=== PATIENT | female | born 1995 | race Hispanic/Latino ===

== ENCOUNTER 2021-05-06 10:56 | Emergency (ER) | payer OTHER ==
[~2021-05-06] VITALS: Ht 157.5 cm; Wt 66.2 kg
[2021-05-06 10:59] VITALS: BP 131/68
[2021-05-06] MEDS ORDERED: ACETAMINOPHEN 500 MG TABLET PO SCH (12:30)
== END 2021-05-06 14:29 | disposition home or self-care (01) ==
LOC: EDH 10:56 → UNDOADMOB 10:57 → LDH 10:57 → EDH 14:29 → UNDODISOB 14:29
DX: O9A.212 Injury, poisoning and certain other consequences of external causes complicating pregnancy, second trimester (principal); S30.0XXA Contusion of lower back and pelvis, initial encounter; Z3A.21 21 weeks gestation of pregnancy; W18.39XA Other fall on same level, initial encounter; Y93.89 Activity, other specified; Y92.89 Other specified places as the place of occurrence of the external cause; Y99.8 Other external cause status
CPT/HCPCS: 99281; G0378

== ENCOUNTER 2021-07-25 20:36 | Observation (INO) | payer OTHER ==
[~2021-07-25] VITALS: Ht 157.5 cm; Wt 73.5 kg
[2021-07-25 20:37] VITALS: BP 138/68
[2021-07-25 21:29] LABS: APPEARANCE,URINE Clear (CLEAR); BILIRUBIN,URINE Negative (NEGATIVE); COLOR,URINE Yellow (YELLOW); GLUCOSE, URINE (UA) Negative (NEGATIVE); KETONES,URINE Negative (NEGATIVE); LEUKOCYTE ESTERASE ,URINE Trace (NEGATIVE); NITRATE,URINE Negative (NEGATIVE); OCCULT BLOOD,URINE Negative (NEGATIVE); PH,URINE 7.5 (5.0-8.0); PROTEIN,URINE Negative (NEGATIVE); UROBILINOGEN,URINE 0.2 mg/dL (0.2-1.0)
[2021-07-25 21:38] LABS: BACTERIA,URINE Rare /HPF (None Seen); RBC,URINE 0-1 /HPF (0-1); SQUAMOUS EPITHELIAL CELL,UR Rare /HPF (0-2); WBC,URINE 0-1 /HPF (0-1)
[2021-07-25 22:15] LABS: AMPHET/METH SCREEN,URINE NEGATIVE (NEGATIVE); BARBITURATE SCREEN, URINE NEGATIVE (NEGATIVE); BENZODIAZEPINES SCREEN,URINE NEGATIVE (NEGATIVE); CANNABINOID SCREEN,URINE NEGATIVE (NEGATIVE); COCAINE SCREEN,URINE NEGATIVE (NEGATIVE); OPIATE SCREEN,URINE NEGATIVE (NEGATIVE); PHENCYCLIDINE SCREEN,URINE NEGATIVE (NEGATIVE)
== END 2021-07-25 21:51 | disposition home or self-care (01) ==
LOC: EDH 20:36 → LDH 20:37
PROVIDERS: ADMIT Specialist; ATTEND Specialist
DX: O42.913 Preterm premature rupture of membranes, unspecified as to length of time between rupture and onset of labor, third trimester (principal); Z79.899 Other long term (current) drug therapy; Z3A.32 32 weeks gestation of pregnancy
CPT/HCPCS: 59025; 80305; 81001; 82120; G0378; G0379

== ENCOUNTER 2021-07-30 14:59 | Observation (INO) | payer OTHER ==
[~2021-07-30] VITALS: Ht 160 cm; Wt 74.8 kg
== END 2021-07-30 17:21 | disposition home or self-care (01) ==
LOC: LDH 14:59
PROVIDERS: ADMIT Specialist; ATTEND Specialist
DX: Z34.93 Encounter for supervision of normal pregnancy, unspecified, third trimester (principal); Z3A.33 33 weeks gestation of pregnancy
CPT/HCPCS: 59025; 76819; G0378

== ENCOUNTER 2022-10-25 18:29 | Emergency (ER) | payer OTHER ==
[~2022-10-25] VITALS: Ht 157.5 cm; Wt 70.3 kg
[~2022-10-25 18:29] MED LIST: PREN-202 PO
[2022-10-25 19:28] LABS: APPEARANCE,URINE CLEAR (CLEAR); BILIRUBIN,URINE NEGATIVE (NEGATIVE); COLOR,URINE COLORLESS (YELLOW); GLUCOSE, URINE (UA) NEGATIVE (NEGATIVE); KETONES,URINE NEGATIVE (NEGATIVE); LEUKOCYTE ESTERASE ,URINE NEGATIVE Leu/uL (NEGATIVE); NITRATE,URINE NEGATIVE (NEGATIVE); OCCULT BLOOD,URINE NEGATIVE (NEGATIVE); PROTEIN,URINE NEGATIVE (NEGATIVE); UROBILINOGEN,URINE 0.2 mg/dL (0.2-1.0)
[2022-10-25 19:30] LABS: BACTERIA,URINE RARE /HPF (None Seen); SQUAMOUS EPITHELIAL CELL,UR RARE /HPF (0-2); WBC,URINE 0-1 /HPF (0-1)
[2022-10-25 19:44] LABS: HCG,QUALITATIVE URINE POSITIVE (NEGATIVE)
[2022-10-25 20:13] LABS: BASOPHILS % (AUTO) 0.3 % (0.0-5.0); EOSINOPHILS % (AUTO) 1.2 % (0.0-8.0); HEMATOCRIT 40.3 % (36-48); LYMPHOCYTES % (AUTO) 20.7 % (21.0-51.0); MEAN CORPUSCULAR HEMOGLOBIN 28.9 pg (27.0-33.0); MEAN CORPUSCULAR HGB CONC 34.2 g/dL (32.0-36.0); MEAN CORPUSCULAR VOLUME 84.5 fL (79-99); MONOCYTES % (AUTO) 6.6 % (3.0-13.0); NEUTROPHILS % (AUTO) 70.8 % (40.0-77.0); PLATELET COUNT (AUTO) 214 K/uL (130-400); RED BLOOD CELL COUNT(AUTO) 4.77 MIL/uL (4.00-5.50); RED CELL DISTRIBUTION WIDTH 11.9 % (11.0-15.5); WHITE BLOOD COUNT (AUTO) 9.2 K/uL (4.8-10.8)
[2022-10-25 20:50] LABS: ALBUMIN 4.2 g/dL (3.5-5.0); CREATININE 0.7 mg/dL (0.5-1.5); POTASSIUM 3.7 mmol/L (3.5-5.1); TOTAL PROTEIN, SERUM 7.9 g/dL (6.0-8.3)
[2022-10-25] MEDS ORDERED: ONDA4TAB10 PO (21:27)
[2022-10-25] MEDS ORDERED: PREN1COM14 PO (21:27)
[2022-10-25 21:42] VITALS: BP 129/85
== END 2022-10-25 21:52 | disposition home or self-care (01) ==
LOC: EDH 18:29
DX: O20.0 Threatened abortion (principal); Z3A.01 Less than 8 weeks gestation of pregnancy; Z86.16 Personal history of COVID-19
CPT/HCPCS: 36415; 76801; 80053; 81001; 81025; 84702; 85025; 86900; 86901

== ENCOUNTER 2023-06-12 02:57 | Inpatient (IN) | payer OTHER, BC ==
[~2023-06-12] VITALS: Ht 157.5 cm; Wt 75.7 kg
[~2023-06-12 02:57] MED LIST changes: +ONDA4TAB10 PO; +PREN1COM14 PO
[2023-06-12] MEDS ORDERED: LACTATED RINGERS 1000ML IV ONE (03:30)
[2023-06-12 03:31] LABS: APPEARANCE,URINE CLEAR (CLEAR); BILIRUBIN,URINE NEGATIVE (NEGATIVE); COLOR,URINE LIGHT-YELLOW (YELLOW); GLUCOSE, URINE (UA) NEGATIVE (NEGATIVE); KETONES,URINE 10 mg/dL (NEGATIVE); LEUKOCYTE ESTERASE ,URINE 75 Leu/uL (NEGATIVE); NITRATE,URINE NEGATIVE (NEGATIVE); OCCULT BLOOD,URINE SMALL (NEGATIVE); PH,URINE 6.5 (5.0-8.0); PROTEIN,URINE NEGATIVE (NEGATIVE); UROBILINOGEN,URINE 0.2 mg/dL (0.2-1.0)
[2023-06-12 03:32] LABS: ADD UA MICROSCOPIC YES
[2023-06-12 03:38] LABS: MUCUS,URINE RARE LPF (None Seen); RBC,URINE 26-50 /HPF (0-1); SQUAMOUS EPITHELIAL CELL,UR MOD /HPF (0-2)
[2023-06-12] MEDS ORDERED: TERBUTALINE SULFATE VIAL 1MG/ML SQ SCH (04:30)
[2023-06-12] MEDS ORDERED: LACTATED RINGERS 1000ML IV PRN (05:00)
[2023-06-12] MEDS ORDERED: CEFAZOLIN SODIUM 2 GM VIAL IVPB PRN (07:30)
[2023-06-12 08:02] LABS: HEMATOCRIT 33.9 % (36-48); MEAN CORPUSCULAR HEMOGLOBIN 30.4 pg (27.0-33.0); MEAN CORPUSCULAR HGB CONC 33.3 g/dL (32.0-36.0); MEAN CORPUSCULAR VOLUME 91.1 fL (79-99); RED BLOOD CELL COUNT(AUTO) 3.72 MIL/uL (4.00-5.50); RED CELL DISTRIBUTION WIDTH 13.1 % (11.0-15.5); WHITE BLOOD COUNT (AUTO) 8.8 K/uL (4.8-10.8)
[2023-06-12 08:53] LABS: HIV 1&2 ANTIBODY Non-Reactive (Negative); HIV-1 p24 Antigen Non-Reactive (Negative)
[2023-06-12] MEDS ORDERED: MORPHINE PF 100MG/10ML AMP IV ONE (09:33)
[2023-06-12] MEDS ORDERED: ONDANSETRON 4MG INJ ONE ×2 (09:41→15:29)
[2023-06-12 10:28] LABS: RAPID PLASMA REAGIN NONREACTIVE (NONREACTIVE)
[2023-06-12] MEDS ORDERED: MEPERIDINE-PF 75 MG/ML SYG IM PRN (11:00)
[2023-06-12] MEDS ORDERED: PROMETHAZINE HCL 25 MG/ML 1ML AMPULE IM PRN (11:00)
[2023-06-12] MEDS ORDERED: OXYTOCIN-LR 30 UNITS/500ML 500 ML IV SCH (11:00)
[2023-06-12 12:50] VITALS: BP 141/67; PULSE 70; RESP 18
[2023-06-12 15:32] VITALS: BP 115/58; PULSE 69; RESP 19
[2023-06-12] MEDS: CEFAZOLIN SODIUM 2 GM VIAL IVPB SCH (17:48)
[2023-06-12] MEDS: DEXTROSE 5 %-0.45 % NACL 1,000 ML IV PRN (17:48)
[2023-06-12 19:12] VITALS: BP 115/54; PULSE 97; RESP 24
[2023-06-12 23:05] VITALS: BP 96/57; PULSE 89; RESP 22
[2023-06-13] MEDS: DEXTROSE 5 %-0.45 % NACL 1,000 ML IV PRN (01:07)
[2023-06-13] MEDS: CEFAZOLIN SODIUM 2 GM VIAL IVPB SCH (01:08)
[2023-06-13 04:11] VITALS: BP 110/64; PULSE 79; RESP 19
[2023-06-13] MEDS ORDERED: ACETAMINOPHEN 500 MG TABLET PO PRN (05:30)
[2023-06-13] MEDS ORDERED: DIPHENHYDRAMINE HCL 25 MG CAPSULE PO PRN (05:30)
[2023-06-13] MEDS ORDERED: LANOLIN 30GM OINTMENT TP PRN (05:30)
[2023-06-13] MEDS ORDERED: ACETAMINOPHEN WITH CODEINE 1 TAB TAB PO PRN (05:30)
[2023-06-13] MEDS ORDERED: SIMETHICONE 80 MG TAB.CHEW PO PRN (05:30)
[2023-06-13] MEDS ORDERED: HYDROCODONE/ACETAMINOPHEN 5/325 MG TAB PO PRN (05:30)
[2023-06-13] MEDS ORDERED: BISACODYL 10 MG SUPP.RECT RC PRN (05:30)
[2023-06-13 06:43] LABS: MEAN CORPUSCULAR HEMOGLOBIN 30.7 pg (27.0-33.0); MEAN CORPUSCULAR HGB CONC 32.9 g/dL (32.0-36.0); MEAN CORPUSCULAR VOLUME 93.3 fL (79-99); RED BLOOD CELL COUNT(AUTO) 3.75 MIL/uL (4.00-5.50); RED CELL DISTRIBUTION WIDTH 13.2 % (11.0-15.5); WHITE BLOOD COUNT (AUTO) 11.2 K/uL (4.8-10.8)
[2023-06-13 07:23] VITALS: BP 90/61; PULSE 74; RESP 18
[2023-06-13] MEDS: IBUPROFEN 600 MG TABLET PO PRN ×2 (08:29→13:55)
[2023-06-13] MEDS ORDERED: DOCUSATE SODIUM 100 MG CAP PO SCH (09:00)
[2023-06-13 12:18] VITALS: BP 111/64; PULSE 76; RESP 18
== END 2023-06-13 15:05 | disposition home or self-care (01) | DRG 788 ==
LOC: EDH 02:57 → OBSVTOIN 03:07 → LDH 03:07 → WSH 12:34
PROVIDERS: ADMIT Obstetrics & Gynecology; ATTEND Obstetrics & Gynecology
PROC: 10D00Z1 Extraction of Products of Conception, Low, Open Approach (ICD-10-PCS; principal; 2023-06-12 09:30)
DX: O82 Encounter for cesarean delivery without indication (principal); Z3A.38 38 weeks gestation of pregnancy; Z37.0 Single live birth; O34.211 Maternal care for low transverse scar from previous cesarean delivery
CPT/HCPCS: 36415; 59510; 81001; 85027; 86592; 86701; 86850; 86900; 86901; 87088; 87340; 87390; 96360; 96361; 96372; A4344; G0378; J2274; J2405; J3105; J7120; A4248; A4649; J0690